=== PATIENT | female | born 1990 | race Caucasian/White ===

== ENCOUNTER 2020-08-12 06:16 | Day surgery (SDC) | payer OTHER, SELFPAY ==
[~2020-08-12] VITALS: Ht 167.6 cm; Wt 51.7 kg
[2020-08-12] MEDS ORDERED: LIDOCAINE VISCOUS 2% 20 ML UDC ONE (08:28)
[2020-08-12] MEDS ORDERED: LIDOCAINE VISCOUS 2% 20 ML UDC PO ONE (08:40)
== END 2020-08-12 09:15 | disposition home or self-care (01) ==
LOC: MDS 06:16 → MMU 06:17 → MDS 09:15
PROVIDERS: ATTEND Internal Medicine Gastroenterology
DX: R10.13 Epigastric pain (principal); R14.0 Abdominal distension (gaseous); Z20.828 Contact with and (suspected) exposure to other viral communicable diseases
CPT/HCPCS: 36415; 43239; 81025; 86677; U0003